=== PATIENT | male | born 1970 | race Caucasian/White ===

== ENCOUNTER 2021-04-30 05:54 | Emergency (ER) | payer SELFPAY ==
[~2021-04-30] VITALS: Ht 182.9 cm; Wt 68.0 kg
--- NOTE | 2021-04-30 06:24 | NUR ---
PATIENT CAME TO ER BED 11 C/O LEFT SHOULER PAIN, SCALP ABRASION. PATIENT IS ALERT AND ORIENTED x3. PATIENT IS COOPERATIVE AND FOLLOWS COMMANDS. PATIENT IS BREATHING EVENLY AND UNLABORED ON ROOM AIR. CONNECTED TO THE MONITOR.
[2021-04-30] MEDS ORDERED: ACETAMINOPHEN ES 500 MG TABLET PO ONE ×2 (06:30→07:30)
[2021-04-30] MEDS ORDERED: TDAP [DIPH/PERTUSSIS/TET] 0.5 ML VIAL IM ONE ×2 (06:30→07:14)
[2021-04-30] MEDS ORDERED: ACETAMINOPHEN ES 500 MG TABLET ONE (06:30)
[2021-04-30] MEDS ORDERED: IV NS 0.9% 1,000 ML BAG IV ONE (06:30)
[2021-04-30 06:45] LABS: BASOPHILS % (AUTO) 0.6 % (0.0-2.0); EOSINOPHILS % (AUTO) 0.1 % (0.0-6.0); HEMATOCRIT 44 % (39-51); HEMOGLOBIN 14.4 g/dL (13.5-17.5); LYMPHOCYTES # (AUTO) 1.1 K/uL (0.8-4.8); LYMPHOCYTES % (AUTO) 13.9 % (20.0-44.0); MEAN CORPUSCULAR HGB CONC 33 g/dl (31.0-36.0); MEAN CORPUSCULAR VOLUME 94 fL (80-96); MONOCYTES # (AUTO) 0.5 K/uL (0.1-1.30); NEUTROPHILS # (AUTO) 6.5 K/uL (1.8-8.9); NEUTROPHILS % (AUTO) 79.4 % (43.0-81.0); PLATELET COUNT (AUTO) 287 K/uL (150-450); RED BLOOD CELL COUNT(AUTO) 4.65 MIL/uL (4.5-6.0); WHITE BLOOD COUNT (AUTO) 8.1 K/uL (4.3-11.0)
--- NOTE | 2021-04-30 06:49 | NUR ---
MD GAVE VERBAL ORDER TO CHANGE 1,000MG OF TYLENOL TO 650MG OF TYLENOL PO.
[2021-04-30 06:53] LABS: CALCIUM, SERUM 8.9 mg/dL (8.5-10.1); POTASSIUM 3.8 mmol/L (3.5-5.1)
--- NOTE | 2021-04-30 06:56 | NUR ---
PATIENT TAKEN TO CT.
[2021-04-30 06:59] LABS: BILIRUBIN,DIRECT 0.6 mg/dL (0.0-0.2); TOTAL PROTEIN, SERUM 7.4 g/dL (6.4-8.2)
--- NOTE | 2021-04-30 07:11 | NUR ---
PT ASLEEP, NO ACUTE DISTRESS NOTED, RESP EVEN AND UNLABORED. NO PAIN OR DISCOMFORT NOTED. CALL LIGHT WITHIN REACH. WILL CONTINUE TO MONITOR PT CLOSELY.
[2021-04-30] MEDS ORDERED: ACETAMINOPHEN 325 MG TABLET ONE (07:14)
[2021-04-30] MEDS ORDERED: IBUP-1955 PO (07:29)
--- NOTE | 2021-04-30 08:52 | NUR ---
IV removed. Catheter intact and site benign. Pressure and 4x4 applied to site. No bleeding noted. Patient given written and verbal discharge instructions. Patient verbalizes understanding of instructions. Patient is ambulatory with steady gait. Refuses offer of [facility] placement. Patient given list of available shelters in surrounding area.
[2021-04-30 08:53] VITALS: BP 115/62
== END 2021-04-30 08:53 | disposition home or self-care (01) ==
LOC: ER 05:56
DX: S00.81XA Abrasion of other part of head, initial encounter (principal); S00.412A Abrasion of left ear, initial encounter; S40.212A Abrasion of left shoulder, initial encounter; F10.10 Alcohol abuse, uncomplicated; F20.9 Schizophrenia, unspecified; F31.9 Bipolar disorder, unspecified; Z88.0 Allergy status to penicillin; X58.XXXA Exposure to other specified factors, initial encounter; Y93.89 Activity, other specified; Y92.89 Other specified places as the place of occurrence of the external cause; Y99.8 Other external cause status; Y90.2 Blood alcohol level of 40-59 mg/100 ml
CPT/HCPCS: 36415; 70450; 71045; 72125; 73030; 80048; 80076; 80320; 85025; 90471; 90715; 96360; 99285; J7030; G0480